=== PATIENT | male | born 1955 | race Caucasian/White ===

== ENCOUNTER 2017-12-21 15:20 | Emergency (ER) | payer MEDICARE ==
[~2017-12-21] VITALS: Ht 167.6 cm; Wt 102.1 kg
[~2017-12-21 15:20] MED LIST: ALBIPROI INH; ASPI325EC; ASPI81CH PO; ATOR40TA; ATOR40TA PO; Aspirin EC81 MG PO; Aspirin325 MG PO; CLOP75 PO; Lisinopril2.5 MG; Lopressor 25 mg25 MG PO; METO25 PO; NAPR550 PO; NICO21TP; Nitrostat0.4 MG SL; Norco 5-325 Ta1 EACH PO; TRAM50 PO; UNKNOWN BP MED; Zofran8 MG PO; [UNRECOGNIZED DRUG - REMARK]
[2017-12-21 16:18] LABS: BASOPHILS ABSOLUTE AUTO 0.07 K/mm3 (0.00-0.23); BASOPHILS PERCENT AUTO 1 % (0-2); EOSINOPHILS ABSOLUTE AUTO 0.09 K/mm3 (0.00-0.68); EOSINOPHILS PERCENT AUTO 1 % (0-6); Hematocrit 49.6 % (37.0-53.0); Hemoglobin 16.6 g/dL (13.5-17.5); IMMATURE GRAN ABSOLUTE AUTO 0.02 K/mm3 (0.00-0.10); IMMATURE GRAN PERCENT AUTO 0 % (0-1); LYMPHOCYTES ABSOLUTE AUTO 2.93 K/mm3 (0.84-5.20); LYMPHOCYTES PERCENT AUTO 37 % (21-46); MONOCYTES ABSOLUTE AUTO 0.63 K/mm3 (0.16-1.47); MONOCYTES PERCENT AUTO 8 % (4-13); Mean Corpuscular HGB Conc 33.5 g/dL (31.5-36.5); Mean Corpuscular Volume 87 fL (80-100); Mean Platelet Volume 11.5 fL (9.1-12.4); NEUTROPHILS ABSOLUTE AUTO 4.12 K/mm3 (1.96-9.15); NEUTROPHILS PERCENT AUTO 52 % (41-73); Platelet Count 181 K/mm3 (150-400); RDW Coefficient Variation 13.3 % (11.7-14.2); RDW Standard Deviation 42.3 fL (35.1-46.3); Red Blood Cell Count 5.72 M/mm3 (4.30-5.90); White Blood Cell Count 7.86 K/mm3 (4.00-11.30)
[2017-12-21 16:27] LABS: Alanine Aminotransfer (ALT/SGP 17 U/L (12-78); Albumin, Blood 3.5 g/dL (3.4-5.0); Albumin/Globulin Ratio 0.9 (0.8-1.8); Alk Phos 76 U/L (50-136); Anion Gap 8 mmol/L (6-16); Aspartate Aminotrans (AST/SGOT 14 U/L (12-37); Bilirubin, Total 0.4 mg/dL (0.1-1.0); Blood Urea Nitrogen 10 mg/dL (8-24); Bun/Creatinine Ratio 11.1 (12.0-20.0); CO2, Blood 24 mmol/L (21-32); Calcium, Blood 8.8 mg/dL (8.5-10.1); Chloride, Blood 105 mmol/L (98-108); Glomerular Filtration Rate >60 (60-); Glucose, Blood 97 mg/dL (70-99); Sodium, Blood 137 mmol/L (136-145); Total Protein, Blood 7.5 g/dL (6.4-8.2); Troponin I <0.015 ng/mL (0.000-0.040)
[2017-12-21] MEDS ORDERED: Nitrostat0.4 MG SL (18:48)
== END 2017-12-21 19:06 | disposition home or self-care (01) ==
LOC: ER 15:20
PROVIDERS: Physician Assistant
DX: R07.9 Chest pain, unspecified (principal); I25.2 Old myocardial infarction; F17.210 Nicotine dependence, cigarettes, uncomplicated; Z79.82 Long term (current) use of aspirin; Z79.899 Other long term (current) drug therapy; Z79.01 Long term (current) use of anticoagulants
CPT/HCPCS: 71046; 80053; 84484; 85025; 93005; 93010; 99284

== ENCOUNTER 2020-11-24 19:24 | Emergency (ER) | payer MEDICARE ==
[~2020-11-24] VITALS: Ht 167.6 cm; Wt 102.1 kg
[2020-11-24 19:39] LABS: BASOPHILS ABSOLUTE AUTO 0.07 K/mm3 (0.00-0.23); BASOPHILS PERCENT AUTO 1 % (0-2); EOSINOPHILS PERCENT AUTO 1 % (0-6); Hematocrit 49.6 % (37.0-53.0); Hemoglobin 16.3 g/dL (13.5-17.5); IMMATURE GRAN ABSOLUTE AUTO 0.02 K/mm3 (0.00-0.10); IMMATURE GRAN PERCENT AUTO 0 % (0-1); LYMPHOCYTES ABSOLUTE AUTO 3.16 K/mm3 (0.84-5.20); LYMPHOCYTES PERCENT AUTO 31 % (21-46); MONOCYTES ABSOLUTE AUTO 0.64 K/mm3 (0.16-1.47); MONOCYTES PERCENT AUTO 6 % (4-13); Mean Corpuscular HGB 29.1 pg (26.0-34.0); Mean Corpuscular HGB Conc 32.9 g/dL (31.5-36.5); Mean Corpuscular Volume 88 fL (80-100); Mean Platelet Volume 11.4 fL (9.1-12.4); NEUTROPHILS ABSOLUTE AUTO 6.27 K/mm3 (1.96-9.15); NEUTROPHILS PERCENT AUTO 61 % (41-73); Platelet Count 155 K/mm3 (150-400); RDW Coefficient Variation 13.8 % (11.7-14.2); RDW Standard Deviation 44.6 fL (35.1-46.3); Red Blood Cell Count 5.61 M/mm3 (4.30-5.90); White Blood Cell Count 10.26 K/mm3 (4.00-11.30)
[2020-11-24 20:02] LABS: Alanine Aminotransfer (ALT/SGP 27 U/L (12-78); Albumin, Blood 3.4 g/dL (3.4-5.0); Albumin/Globulin Ratio 0.9 (0.8-1.8); Alk Phos 91 U/L (50-136); Anion Gap 7 mmol/L (6-16); Aspartate Aminotrans (AST/SGOT 20 U/L (12-37); Bilirubin, Total 0.4 mg/dL (0.1-1.0); Blood Urea Nitrogen 10 mg/dL (8-24); Bun/Creatinine Ratio 11.1 (12.0-20.0); CO2, Blood 24 mmol/L (21-32); Calcium, Blood 8.6 mg/dL (8.5-10.1); Chloride, Blood 106 mmol/L (98-108); Globulin, Blood 3.6 g/dL (2.2-4.0); Glomerular Filtration Rate >60 (60-); Glucose, Blood 106 mg/dL (70-99); Potassium, Blood 3.9 mmol/L (3.5-5.5); Sodium, Blood 137 mmol/L (136-145); Troponin I <0.015 ng/mL (0.000-0.040)
== END 2020-11-24 22:45 | disposition home or self-care (01) ==
LOC: ER 19:24
PROVIDERS: Emergency Medicine
DX: R07.9 Chest pain, unspecified (principal); R42 Dizziness and giddiness; E78.5 Hyperlipidemia, unspecified; I10 Essential (primary) hypertension; F17.210 Nicotine dependence, cigarettes, uncomplicated; Z79.02 Long term (current) use of antithrombotics/antiplatelets; Z79.899 Other long term (current) drug therapy; Z79.82 Long term (current) use of aspirin; Z95.5 Presence of coronary angioplasty implant and graft
CPT/HCPCS: 80053; 83690; 84484; 85025; 93005; 93010; 99285-25

== ENCOUNTER 2023-06-04 11:16 | Inpatient (IN) | payer MEDICARE ==
[~2023-06-04] VITALS: Ht 167.6 cm; Wt 74.5 kg
[2023-06-04 13:35] LABS: BASOPHILS ABSOLUTE AUTO 0.07 K/mm3 (0.00-0.23); BASOPHILS PERCENT AUTO 1 % (0-2); EOSINOPHILS ABSOLUTE AUTO 0.11 K/mm3 (0.00-0.68); EOSINOPHILS PERCENT AUTO 1 % (0-6); Hematocrit 52.4 % (37.0-53.0); Hemoglobin 17.4 g/dL (13.5-17.5); IMMATURE GRAN ABSOLUTE AUTO 0.01 K/mm3 (0.00-0.10); IMMATURE GRAN PERCENT AUTO 0 % (0-1); LYMPHOCYTES ABSOLUTE AUTO 3.32 K/mm3 (0.84-5.20); LYMPHOCYTES PERCENT AUTO 38 % (21-46); MONOCYTES ABSOLUTE AUTO 0.61 K/mm3 (0.16-1.47); MONOCYTES PERCENT AUTO 7 % (4-13); Mean Corpuscular HGB 29.2 pg (26.0-34.0); Mean Corpuscular HGB Conc 33.2 g/dL (31.5-36.5); Mean Corpuscular Volume 88 fL (80-100); Mean Platelet Volume 11.6 fL (9.1-12.4); NEUTROPHILS PERCENT AUTO 53 % (41-73); Platelet Count 164 K/mm3 (150-400); RDW Coefficient Variation 13.9 % (11.7-14.2); RDW Standard Deviation 45.1 fL (35.1-46.3); Red Blood Cell Count 5.95 M/mm3 (4.30-5.90); White Blood Cell Count 8.72 K/mm3 (4.00-11.30)
[2023-06-04 14:24] LABS: Alanine Aminotransfer (ALT/SGP 26 U/L (12-78); Albumin, Blood 3.8 g/dL (3.4-5.0); Alk Phos 81 U/L (50-136); Anion Gap 0 mmol/L (6-16); Aspartate Aminotrans (AST/SGOT 19 U/L (12-37); Bilirubin, Total 0.4 mg/dL (0.1-1.0); Blood Urea Nitrogen 14 mg/dL (8-24); Bun/Creatinine Ratio 16.1 (12.0-20.0); C-REACTIVE PROTEIN, EXT RANGE < 2.900 mg/dL (0.000-0.300); CO2, Blood 28 mmol/L (21-32); Calcium, Blood 9.4 mg/dL (8.5-10.1); Chloride, Blood 110 mmol/L (98-108); Creatinine, Blood 0.87 mg/dL (0.60-1.20); Globulin, Blood 3.8 g/dL (2.2-4.0); Glomerular Filtration Rate 95 (60-); Glucose, Blood 93 mg/dL (70-99); Potassium, Blood 4.3 mmol/L (3.5-5.5); Sodium, Blood 138 mmol/L (136-145); Total Protein, Blood 7.6 g/dL (6.4-8.2)
[2023-06-04 14:31] LABS: Anti-Xa UFH, PHA Monitoring <0.10 IU/mL; International Normalized Ratio 1.02; Prothrombin Time Results 10.7 Sec (9.7-11.5)
[2023-06-04 18:42] VITALS: BP 126/68
--- NOTE | 2023-06-04 19:06 | NUR ---
ASSIGNED PATIENT TO ROOM 313 FROM ED AT 1733 ED RN REPORT FROM [facility] AT 1805, PATIENT ARRIVED ON FLOOR AT 1836 VIA BED, ABLE TO STAND/PIVOT TRANSFER TO ROOM BED. HEPARIN VERIFIED WITH ISHAN BRANTLEY FOR POWER STATION OPERATOR AT 1846.
[2023-06-04 19:51] VITALS: BP 106/69
--- NOTE | 2023-06-05 05:02 | NUR ---
EOS NOTE: RECEIVED PATIENT FROM RELOCATION COMMISSIONER AT 0015, BEDSIDE REPORT COMPLETED. ASSESSED LEFT GROIN SITE WITH RELOCATION COMMISSIONER RN. SITE IS C/D/I, COVERED WITH TRANSPARENT CHG DRESSING, SMALL AMOUNT OF SANGUINEOUS DRAINAGE TO SITE. ASSESSED SITE Q15 MINUTES FOR FIRST HOUR, Q30 FOR SECOND HOUR, Q1 FOLLOWING. SITE CONTINUED TO BE C/D/I. MEASUREMENTS TO BELOW KNEE, CALF, AND ANKLE WERE CONSISTENT EACH TIME. PATIENT IS ORIENTED AND PLEASANT TO WORK WITH. MAINTAINED FLAT TIME FOR FIRST 3 HOURS, ADVANCED 15 DEGREES EVERY SUBSEQUENT HOUR AFTER. MAINTAINED SB/NSR ON TELE. CONTINENT OF GI/, URINE OUTPUT APPROPRIATE FOR SHIFT. L IV HAS HEPARIN INFUSING. VSS. REVASC SITE STABLE. WILL CONTINUE TO MONITOR.
[2023-06-05 07:52] VITALS: BP 116/65
[2023-06-05 07:57] LABS: BASOPHILS ABSOLUTE AUTO 0.06 K/mm3 (0.00-0.23); BASOPHILS PERCENT AUTO 1 % (0-2); EOSINOPHILS ABSOLUTE AUTO 0.11 K/mm3 (0.00-0.68); EOSINOPHILS PERCENT AUTO 1 % (0-6); Hematocrit 46.2 % (37.0-53.0); Hemoglobin 15.3 g/dL (13.5-17.5); IMMATURE GRAN ABSOLUTE AUTO 0.03 K/mm3 (0.00-0.10); IMMATURE GRAN PERCENT AUTO 0 % (0-1); LYMPHOCYTES ABSOLUTE AUTO 3.34 K/mm3 (0.84-5.20); LYMPHOCYTES PERCENT AUTO 34 % (21-46); MONOCYTES ABSOLUTE AUTO 0.73 K/mm3 (0.16-1.47); MONOCYTES PERCENT AUTO 8 % (4-13); Mean Corpuscular HGB 29.5 pg (26.0-34.0); Mean Corpuscular HGB Conc 33.1 g/dL (31.5-36.5); Mean Corpuscular Volume 89 fL (80-100); Mean Platelet Volume 11.6 fL (9.1-12.4); NEUTROPHILS PERCENT AUTO 56 % (41-73); Platelet Count 129 K/mm3 (150-400); RDW Coefficient Variation 14.2 % (11.7-14.2); RDW Standard Deviation 46.2 fL (35.1-46.3); Red Blood Cell Count 5.19 M/mm3 (4.30-5.90); White Blood Cell Count 9.77 K/mm3 (4.00-11.30)
[2023-06-05 08:06] LABS: Bun/Creatinine Ratio 21.4 (12.0-20.0); Calcium, Blood 8.4 mg/dL (8.5-10.1); Creatinine, Blood 1.03 mg/dL (0.60-1.20); Potassium, Blood 4.6 mmol/L (3.5-5.5)
--- NOTE | 2023-06-05 10:36 | NUR ---
care assumption this rn assumed care at 0700. vital signs stable. tele sr. spo2 >95% on room air. patietn is alert and oriented x4. patient reports no pain, chest pain/pressure, or shortness of breath. pateint left access site from revasc has approx quarter size old blood on dressing. patient up to bathroom this am and morning care, no new oozing at site. patient has a small bruise forming at site, patient reports tenderness when palpating. see admit assessment for further detials. MD Garcia and team in to see patient this am and discussed plan of care. plan of care is up to date. admit assessment and history not completed. this rn completed admit assessment and history, see admit assessment for this management intern.
[2023-06-05 11:06] VITALS: BP 126/72
[2023-06-05] MEDS ORDERED: XARELTO20 MG PO (13:59)
--- NOTE | 2023-06-05 14:30 | NUR ---
DISCHARGE This rn went over discharge instructions. this rn went voer the importance fo follow up with primary care provider, patient verbalized understanding. this rn went over new medication and the rationale for taking it, patient verbalized understanding. this rn went over follow up appointment with md oliver and patient verbalized understanding. medications faxed to [facility]. patient belongings gathered. patient in no distress and no acute changes. awaiting for ride.
--- NOTE | 2023-06-05 15:39 | NUR ---
PATIENT LEFT PATIENT LEFT WITH ALL BELONGINGS AND IN NO DISTRESS.
[2023-06-06] MEDS ORDERED: ACET500 PO (00:15)
== END 2023-06-05 15:00 | disposition home or self-care (01) | DRG 272 ==
LOC: ER 11:16 → MEDS 11:17 → PCU 06-05 00:13
PROVIDERS: Student in an Organized Health Care Education/Training Program; ADMIT Hospitalist
PROC: 04CN3ZZ Extirpation of Matter from Left Popliteal Artery, Percutaneous Approach (ICD-10-PCS; principal; 2023-06-04)
PROC: 3E05317 Introduction of Other Thrombolytic into Peripheral Artery, Percutaneous Approach (ICD-10-PCS; 2023-06-04)
PROC: 04CN3ZZ Extirpation of Matter from Left Popliteal Artery, Percutaneous Approach (ICD-10-PCS; 2023-06-04)
PROC: 047N3ZZ Dilation of Left Popliteal Artery, Percutaneous Approach (ICD-10-PCS; 2023-06-04)
PROC: 047S3ZZ Dilation of Left Posterior Tibial Artery, Percutaneous Approach (ICD-10-PCS; 2023-06-04)
PROC: B41G1ZZ Fluoroscopy of Left Lower Extremity Arteries using Low Osmolar Contrast (ICD-10-PCS; 2023-06-04)
DX: I74.3 Embolism and thrombosis of arteries of the lower extremities (principal); I25.10 Atherosclerotic heart disease of native coronary artery without angina pectoris; I10 Essential (primary) hypertension; E78.5 Hyperlipidemia, unspecified; F12.90 Cannabis use, unspecified, uncomplicated; F17.210 Nicotine dependence, cigarettes, uncomplicated; I25.2 Old myocardial infarction; Z95.5 Presence of coronary angioplasty implant and graft; Z79.82 Long term (current) use of aspirin; Z79.01 Long term (current) use of anticoagulants; Z79.899 Other long term (current) drug therapy; Z79.811 Long term (current) use of aromatase inhibitors
CPT/HCPCS: 36415; 76937; 80048; 80053; 82550; 85025; 85520; 85610; 85651; 85730; 86140; 93926; 93971; 96365; 96366; 96375; 99152; 99153; 99285-25; A9270; C1725; C1757; C1760; C1769; C1887; C1894; C8929; J1644; J1885; J2250; J2270; J2997; J3010; J7030; J7040; J7050; Q9957; Q9967

== ENCOUNTER 2023-06-05 20:57 | Emergency (ER) | payer MEDICARE ==
[~2023-06-05] VITALS: Ht 167.6 cm; Wt 70.0 kg
[~2023-06-05 20:57] MED LIST changes: +XARELTO20 MG PO
[2023-06-06] MEDS ORDERED: ACET500 PO (00:15)
[2023-06-06 00:35] VITALS: BP 123/87
== END 2023-06-06 00:35 | disposition home or self-care (01) ==
LOC: ER 20:57
DX: M79.662 Pain in left lower leg (principal); M79.605 Pain in left leg; Z79.899 Other long term (current) drug therapy; G40.909 Epilepsy, unspecified, not intractable, without status epilepticus; I25.2 Old myocardial infarction; F17.210 Nicotine dependence, cigarettes, uncomplicated
CPT/HCPCS: 93971; 99283-25; A9270

== ENCOUNTER 2023-06-10 23:23 | Emergency (ER) | payer MEDICARE ==
[~2023-06-10] VITALS: Ht 167.6 cm; Wt 75.3 kg
[~2023-06-10 23:23] MED LIST changes: +ACET500 PO
[2023-06-11] MEDS ORDERED: HYDACE10B PO (01:29)
[2023-06-11 01:33] VITALS: BP 108/79
== END 2023-06-11 01:35 | disposition home or self-care (01) ==
LOC: ER 23:23
DX: I70.202 Unspecified atherosclerosis of native arteries of extremities, left leg (principal); I25.2 Old myocardial infarction; I25.10 Atherosclerotic heart disease of native coronary artery without angina pectoris; G40.909 Epilepsy, unspecified, not intractable, without status epilepticus; I11.0 Hypertensive heart disease with heart failure; I50.9 Heart failure, unspecified; E78.5 Hyperlipidemia, unspecified; F17.210 Nicotine dependence, cigarettes, uncomplicated; Z79.01 Long term (current) use of anticoagulants; Z79.02 Long term (current) use of antithrombotics/antiplatelets; Z79.899 Other long term (current) drug therapy
CPT/HCPCS: 93926; 99283-25

== ENCOUNTER 2023-06-12 12:45 | Inpatient (IN) | payer MEDICARE, MEDICAID ==
[~2023-06-12] VITALS: Ht 167.6 cm; Wt 73.2 kg
[~2023-06-12 12:45] MED LIST changes: +HYDACE10B PO
[2023-06-12 14:15] LABS: BASOPHILS ABSOLUTE AUTO 0.05 K/mm3 (0.00-0.23); BASOPHILS PERCENT AUTO 1 % (0-2); EOSINOPHILS ABSOLUTE AUTO 0.11 K/mm3 (0.00-0.68); EOSINOPHILS PERCENT AUTO 1 % (0-6); Hematocrit 48.9 % (37.0-53.0); Hemoglobin 16.3 g/dL (13.5-17.5); IMMATURE GRAN ABSOLUTE AUTO 0.02 K/mm3 (0.00-0.10); IMMATURE GRAN PERCENT AUTO 0 % (0-1); LYMPHOCYTES ABSOLUTE AUTO 2.68 K/mm3 (0.84-5.20); LYMPHOCYTES PERCENT AUTO 32 % (21-46); MONOCYTES ABSOLUTE AUTO 0.62 K/mm3 (0.16-1.47); MONOCYTES PERCENT AUTO 7 % (4-13); Mean Corpuscular HGB 29.4 pg (26.0-34.0); Mean Corpuscular HGB Conc 33.3 g/dL (31.5-36.5); Mean Corpuscular Volume 88 fL (80-100); Mean Platelet Volume 11.7 fL (9.1-12.4); NEUTROPHILS ABSOLUTE AUTO 4.99 K/mm3 (1.96-9.15); NEUTROPHILS PERCENT AUTO 59 % (41-73); Platelet Count 142 K/mm3 (150-400); RDW Coefficient Variation 14.2 % (11.7-14.2); RDW Standard Deviation 46.3 fL (35.1-46.3); Red Blood Cell Count 5.54 M/mm3 (4.30-5.90); White Blood Cell Count 8.47 K/mm3 (4.00-11.30)
[2023-06-12 14:42] LABS: International Normalized Ratio 1.13; Prothrombin Time Results 11.8 Sec (9.7-11.5)
[2023-06-12 14:46] LABS: Albumin, Blood 3.6 g/dL (3.4-5.0); Bilirubin, Total 0.5 mg/dL (0.1-1.0); Bun/Creatinine Ratio 22.8 (12.0-20.0); Calcium, Blood 8.6 mg/dL (8.5-10.1); Creatinine, Blood 0.88 mg/dL (0.60-1.20); Globulin, Blood 3.7 g/dL (2.2-4.0); Potassium, Blood 4.5 mmol/L (3.5-5.5); Total Protein, Blood 7.3 g/dL (6.4-8.2)
[2023-06-12 17:47] VITALS: BP 142/69
--- NOTE | 2023-06-12 19:11 | NUR ---
ADMISSION NOTES: RECEIVED REPORT FROM GASTON VAZQUEZ, RN AT AROUND 1740. PER [facility] ALREADY SPOKE TO DR. LONG REGARDING PATIENT CONDITION, PLAN TO HAVE PATIENT PROCEDURE DONE ON WEDNESDAY. PATIENT ARRIVES TO ROOM AT AROUND 1750 FROM ER FOR DX OF PERIPHERAL ARTERIAL DISEASE. PATIENT TRANSFERRED FROM [facility] TO BED USING SLIDER SHEET. PATIENT A&OX4. ORIENTED TO ROOM AND CALL SYSTEM. NOTED BRUISNG SCATTERED T/O, PLUS 1 EDEMA TO BLE'S. PATIENT REPORTS PAIN 8/10 TO L LOWER LEG BELOW BEHIND HIS KNEE, MEDICATED X1 c PO NORCO. PATIENT ON BEDREST c BRP. ADMISSION, MEDRIC, AND SKIN ASSESSMENT c 2 RN VERIFIERS COMPLETED. VITAL SIGNS REVIEWED. DENIES CP/PRESSURE AND SOB. IV TO LAC INFUSING HEPARIN. CALL LIGHT IN REACH. PATIENT EDUCATED ON NON SMOKING POLICY, RISK OF INJURY AND IGNITION SOURCES WHEN O2 IN USE. PATIENT DENIES SMOKING AND VERBALIZED UNDERSTANDING.
--- NOTE | 2023-06-13 01:30 | NUR ---
REPORT RECEIVED VSS, PAIN TO LEFT CALF DVT. HEPARIN INFUSING. 1105 HEPARIN STOPPED FOR ELEVATED APTT FOR ONE HOUR. 1205 HEPARIN DOSE CHANGED TO 15UNITS, AND RESTARTED 1245 INCREASED PAIN TO LEFT LEG, HEAT PAD APPLIED, NEW IV STARTED AND MEDICATION GIVEN.
[2023-06-13 03:53] VITALS: BP 135/78
--- NOTE | 2023-06-13 05:33 | NUR ---
PT HAVING PAIN AND IS COVERED WITH PAIN MEDS. HAS BEEN CALLING APPROPRIATLY, PT ALSO TRANSFERS WELL WITH FWW AND TRANSFERS TO BATHROOM. NO CHANGE IN CONDITION
[2023-06-13 07:22] LABS: BASOPHILS ABSOLUTE AUTO 0.06 K/mm3 (0.00-0.23); BASOPHILS PERCENT AUTO 1 % (0-2); EOSINOPHILS PERCENT AUTO 1 % (0-6); Hematocrit 44.9 % (37.0-53.0); Hemoglobin 15.1 g/dL (13.5-17.5); IMMATURE GRAN ABSOLUTE AUTO 0.02 K/mm3 (0.00-0.10); IMMATURE GRAN PERCENT AUTO 0 % (0-1); LYMPHOCYTES ABSOLUTE AUTO 2.76 K/mm3 (0.84-5.20); LYMPHOCYTES PERCENT AUTO 32 % (21-46); MONOCYTES ABSOLUTE AUTO 0.72 K/mm3 (0.16-1.47); MONOCYTES PERCENT AUTO 8 % (4-13); Mean Corpuscular HGB 29.7 pg (26.0-34.0); Mean Corpuscular HGB Conc 33.6 g/dL (31.5-36.5); Mean Corpuscular Volume 88 fL (80-100); NEUTROPHILS ABSOLUTE AUTO 5.09 K/mm3 (1.96-9.15); NEUTROPHILS PERCENT AUTO 58 % (41-73); Platelet Count 131 K/mm3 (150-400); RDW Coefficient Variation 14.2 % (11.7-14.2); RDW Standard Deviation 45.7 fL (35.1-46.3); Red Blood Cell Count 5.09 M/mm3 (4.30-5.90); White Blood Cell Count 8.75 K/mm3 (4.00-11.30)
[2023-06-13 07:28] VITALS: BP 112/74
[2023-06-13 07:55] LABS: Bun/Creatinine Ratio 23.3 (12.0-20.0); Calcium, Blood 8.5 mg/dL (8.5-10.1); Creatinine, Blood 0.9 mg/dL (0.60-1.20); Potassium, Blood 4.4 mmol/L (3.5-5.5)
[2023-06-13 15:13] VITALS: BP 134/71
--- NOTE | 2023-06-13 17:47 | NUR ---
SHIFT SUMMARY: PATIENT A&OX4. CALM, PLEASANT AND COOPERATIVE c CARE. USES CALL LIGHT APPROPRIATELY AND ABLE TO MAKE NEEDS KNOWN. PATIENT DENIES CP/PRESSURE, SOB, N/V. PATIENT CONTINUES TO REPORT PAIN 5-9/10 TO L LEG/CALF THIS SHIFT, MEDICATED c PRN PAIN MEDS PER EMAR, HEATING PAD AND REPOSITIONING T/O SHIFT c GOOD EFFECT. PIV TO LAC SALINE LOCKED. PIV TO R FOREARM INFUSING HEPARIN AT 14 U/KG/HR, RATE CONTROLLED BY PHARMACY. CONTINENCE OF BLADDER AND USES URINAL/BATHROOM T/O SHIFT c 1 ASSIST, FWW AND GAITBELT. PATIENT IS EATING AND DRINKING WELL. RECEIVED SCHEDULED MEDS PER EMAR. VITAL SIGNS REVIEWED. CALL LIGHT IN REACH. PATIENT EDUCATED ON NON SMOKING POLICY, RISK OF INJURY AND IGNITION SOURCES WHEN O2 IN USE. PATIENT DENIES SMOKING AND VERBALIZED UNDERSTANDING.
[2023-06-13 19:01] VITALS: BP 118/87
--- NOTE | 2023-06-14 04:10 | NUR ---
SHIFT SUMMARY PT A&OX4, AND COOPERATIVE WITH CARE. NO ACUTE CHANGES. RESTED MAJORITY OF SHIFT. ALTERNATING NORCO AND FENTANYL FOR PAIN. 1-ASSIST WITH GB/FWW TO BATHROOM. NPO SINCE MIDNIGHT. HEPARIN INFUSING @ 14 UNITS/KG/HR. CALLS APPROPRIATELY, CALL LIGHT WITHIN REACH.
[2023-06-14 04:57] LABS: BASOPHILS ABSOLUTE AUTO 0.04 K/mm3 (0.00-0.23); BASOPHILS PERCENT AUTO 1 % (0-2); EOSINOPHILS ABSOLUTE AUTO 0.11 K/mm3 (0.00-0.68); EOSINOPHILS PERCENT AUTO 1 % (0-6); Hematocrit 43.1 % (37.0-53.0); Hemoglobin 14.5 g/dL (13.5-17.5); IMMATURE GRAN ABSOLUTE AUTO 0.02 K/mm3 (0.00-0.10); IMMATURE GRAN PERCENT AUTO 0 % (0-1); LYMPHOCYTES ABSOLUTE AUTO 2.25 K/mm3 (0.84-5.20); LYMPHOCYTES PERCENT AUTO 28 % (21-46); MONOCYTES ABSOLUTE AUTO 0.69 K/mm3 (0.16-1.47); MONOCYTES PERCENT AUTO 9 % (4-13); Mean Corpuscular HGB 29.5 pg (26.0-34.0); Mean Corpuscular HGB Conc 33.6 g/dL (31.5-36.5); Mean Corpuscular Volume 88 fL (80-100); Mean Platelet Volume 12.3 fL (9.1-12.4); NEUTROPHILS ABSOLUTE AUTO 4.97 K/mm3 (1.96-9.15); NEUTROPHILS PERCENT AUTO 62 % (41-73); Platelet Count 130 K/mm3 (150-400); RDW Coefficient Variation 14.1 % (11.7-14.2); Red Blood Cell Count 4.92 M/mm3 (4.30-5.90); White Blood Cell Count 8.08 K/mm3 (4.00-11.30)
[2023-06-14 05:18] LABS: Albumin, Blood 3.1 g/dL (3.4-5.0); Bilirubin, Total 0.5 mg/dL (0.1-1.0); Calcium, Blood 8.7 mg/dL (8.5-10.1); Creatinine, Blood 0.95 mg/dL (0.60-1.20); Globulin, Blood 3.2 g/dL (2.2-4.0); Potassium, Blood 4.3 mmol/L (3.5-5.5); Total Protein, Blood 6.3 g/dL (6.4-8.2)
[2023-06-14 07:39] VITALS: BP 115/58
[2023-06-14 14:31] VITALS: BP 147/88
--- NOTE | 2023-06-14 15:50 | NUR ---
SHIFT SUMMARY PT REMAINS PAINFUL T/O SHIFT TO LLE. HE CONTINUES TO ENDORSE TO NUMBNESS TO FOOT ON THAT SIDE. [id number], CALLS APPROPRIATLY. TOLERATING DIET WELL. VOIDING IN URINAL. HEPARIN INFUSING PER EMAR. PLAN FOR POSSIBLE PROCEDURE TOMORROW WITH IR. NPO AT MIDNIGHT.
--- NOTE | 2023-06-14 16:40 | NUR ---
SPOKE WITH DR. LONG, PLAN IS FOR PROCEDURE EARLY TOMORROW MORNING. PT TO BE NPO AT MIDNIGHT.
[2023-06-14 19:46] VITALS: BP 133/77
[2023-06-15] VITALS (14 sets, daily range): BP systolic 105–162; BP diastolic 53–122
[2023-06-15 01:23] LABS: BASOPHILS ABSOLUTE AUTO 0.04 K/mm3 (0.00-0.23); BASOPHILS PERCENT AUTO 1 % (0-2); EOSINOPHILS ABSOLUTE AUTO 0.11 K/mm3 (0.00-0.68); EOSINOPHILS PERCENT AUTO 2 % (0-6); Hematocrit 44.6 % (37.0-53.0); Hemoglobin 14.8 g/dL (13.5-17.5); IMMATURE GRAN ABSOLUTE AUTO 0.02 K/mm3 (0.00-0.10); IMMATURE GRAN PERCENT AUTO 0 % (0-1); LYMPHOCYTES ABSOLUTE AUTO 2.92 K/mm3 (0.84-5.20); LYMPHOCYTES PERCENT AUTO 40 % (21-46); MONOCYTES ABSOLUTE AUTO 0.78 K/mm3 (0.16-1.47); MONOCYTES PERCENT AUTO 11 % (4-13); Mean Corpuscular HGB 29.4 pg (26.0-34.0); Mean Corpuscular HGB Conc 33.2 g/dL (31.5-36.5); Mean Corpuscular Volume 89 fL (80-100); Mean Platelet Volume 11.7 fL (9.1-12.4); NEUTROPHILS ABSOLUTE AUTO 3.48 K/mm3 (1.96-9.15); NEUTROPHILS PERCENT AUTO 47 % (41-73); Platelet Count 117 K/mm3 (150-400); RDW Coefficient Variation 14.1 % (11.7-14.2); RDW Standard Deviation 45.5 fL (35.1-46.3); Red Blood Cell Count 5.03 M/mm3 (4.30-5.90); White Blood Cell Count 7.35 K/mm3 (4.00-11.30)
[2023-06-15 01:42] LABS: Albumin/Globulin Ratio 0.9 (0.8-1.8); Bilirubin, Total 0.4 mg/dL (0.1-1.0); Calcium, Blood 8.6 mg/dL (8.5-10.1); Creatinine, Blood 0.96 mg/dL (0.60-1.20); Globulin, Blood 3.3 g/dL (2.2-4.0); Potassium, Blood 4.3 mmol/L (3.5-5.5); Total Protein, Blood 6.3 g/dL (6.4-8.2)
--- NOTE | 2023-06-15 05:25 | NUR ---
Shift Summary Pt has been NPO since 0000 in anticipation for vascular surgery on LLE. Pt c/o intractible 08/03 abd pain for days. I called the hospitalist who ordered PRN dilauded. I gave one dose and brought in pillows to elevate his LLE. Pt states this brought feeling back to his foot and, combined with the medicine, greatly reduced his pain. Pt slept through some of the night but was mostly awake. AOx4, currently on bedrest, cooperative with care.
--- NOTE | 2023-06-15 12:52 | NUR ---
[facility]. PT WAS ALOX4, REPORT GIVEN TO OMAR IN PCU. PT TO BE TRANSFERED TO PCU 3 AFTER
--- NOTE | 2023-06-15 14:43 | NUR ---
CARE ASSUMPTION PT TO PCU 6 FROM PRODUCT STRATEGY DIRECTOR AT APPROX 1400. PT A&OX4, THOUGH DROWSY. SP02>90% ON RA. TELEMETRY SHOWS SINUS PUSHPA, HR 40'S-50'S, BP SOFT, SEE VITALS. PT LAYING FLAT, R GROIN SITE W/ ANGIO SEAL. SITE SOFT, NO SIGNS OF BLEEDING, BRUISING OR HEMATOMA. PER REPORT, MD LONG W/ ORDERS TO RESTART HEPARIN. PHARMACY CALLED, HEPARIN VERIFIED W/ 2ND RN AND RESTARTED PER EMAR. PT RESTING IN BED, FLAT. RECOVERY VITALS BEING SEQUENCED. CALL LIGHT IN REACH.
[2023-06-16] VITALS (8 sets, daily range): BP systolic 87–122; BP diastolic 63–93
[2023-06-16 03:36] LABS: BASOPHILS ABSOLUTE AUTO 0.04 K/mm3 (0.00-0.23); BASOPHILS PERCENT AUTO 1 % (0-2); EOSINOPHILS ABSOLUTE AUTO 0.11 K/mm3 (0.00-0.68); EOSINOPHILS PERCENT AUTO 2 % (0-6); Hematocrit 44.2 % (37.0-53.0); Hemoglobin 14.9 g/dL (13.5-17.5); IMMATURE GRAN ABSOLUTE AUTO 0.02 K/mm3 (0.00-0.10); IMMATURE GRAN PERCENT AUTO 0 % (0-1); LYMPHOCYTES ABSOLUTE AUTO 2.24 K/mm3 (0.84-5.20); LYMPHOCYTES PERCENT AUTO 30 % (21-46); MONOCYTES ABSOLUTE AUTO 0.78 K/mm3 (0.16-1.47); MONOCYTES PERCENT AUTO 10 % (4-13); Mean Corpuscular HGB 29.4 pg (26.0-34.0); Mean Corpuscular HGB Conc 33.7 g/dL (31.5-36.5); Mean Corpuscular Volume 87 fL (80-100); Mean Platelet Volume 11.9 fL (9.1-12.4); NEUTROPHILS ABSOLUTE AUTO 4.36 K/mm3 (1.96-9.15); NEUTROPHILS PERCENT AUTO 58 % (41-73); Platelet Count 125 K/mm3 (150-400); RDW Standard Deviation 44.9 fL (35.1-46.3); Red Blood Cell Count 5.07 M/mm3 (4.30-5.90); White Blood Cell Count 7.55 K/mm3 (4.00-11.30)
[2023-06-16 03:58] LABS: Albumin, Blood 3.1 g/dL (3.4-5.0); Albumin/Globulin Ratio 0.9 (0.8-1.8); Bilirubin, Total 0.6 mg/dL (0.1-1.0); Bun/Creatinine Ratio 23.1 (12.0-20.0); Calcium, Blood 8.9 mg/dL (8.5-10.1); Creatinine, Blood 0.95 mg/dL (0.60-1.20); Globulin, Blood 3.6 g/dL (2.2-4.0); Potassium, Blood 4.4 mmol/L (3.5-5.5); Total Protein, Blood 6.7 g/dL (6.4-8.2)
--- NOTE | 2023-06-16 06:32 | NUR ---
NOC SHIFT SUMMARY PT ORIENTED X4, ANXIOUS BUT COOPERATIVE. R GROIN SITE WNL, SOFT, NO HEMATOMA. CHECKED Q1X2 AND THEN Q4 OVERNIGHT WITH NO CHANGES. N/T TO LLE, PULSES FAINT BUT PALPABLE. PT VOIDING DARK URINE, ENCOURAGING PO INTAKE. VSS PER PT TREND. PRNS GIVEN W/RELIEF. WILL PASS ON TO DAY RN
--- NOTE | 2023-06-16 18:33 | NUR ---
END OF SHIFT NOTE PT A&OX4 THIS SHIFT, COOPERATIVE WITH CARE. HR MOSTLY 50-60'S, PT DENIES CP/PRESSURE. SBP MOSTLY 110'S-120'S. SPO2 >95% ON RA, DENIES SOB. R GROIN SITE INTACT, SOFT, NO HEMATOMA. COVERED WITH CHG TEGADERM. LLE PAIN/TINGLING, MEDICATED PER EMAR THROUGHOUT SHIFT. PULSES FAINT BUT PALPABLE. PT ABLE TO VOID IN URINAL, DARK TEA-COLORED URINE. PO FLUIDS ENCOURAGED THIS SHIFT. HEPARIN GTT CURRENTLY INFUSING PER EMAR. CALL LIGHT WITHIN REACH, NO FURTHER NEEDS AT THIS TIME. BED IN LOWEST POSITION. WILL REPORT TO ONCOMING RN.
[2023-06-17] VITALS (13 sets, daily range): BP systolic 118–207; BP diastolic 64–175
--- NOTE | 2023-06-17 05:32 | NUR ---
SHIFT SUMMARY THIS RN ASSUMED CARE OF PATIENT AT 1900. PT A&O X4, ABLE TO MAKE NEEDS KNOWN. CONTINUES TO HAVE PAIN IN LLE; MEDICATING PER EMAR. SB WITH HR 40-50'S AT REST. BP STABLE. AFEBRILE. ON RA WITH SPO2 >92%. HEP GTT INFUSING PER EMAR. RT GROIN SITE SOFT AND NONTENDER; FULLY RECOVERED, DRESSING C/D/I. PT USING URINAL INDEPENDENTLY; CONTINUES TO BE DARK/BROWN COLORED. BED IN LOWEST POSITION AND CALL LIGHT WITHIN REACH. THIS RN WILL REPORT TO ONCOMING RN.
--- NOTE | 2023-06-17 11:19 | NUR ---
PT UPDATE SPOKE WITH PHYSICIAN REGARDING D/C ORDERS PT RECEIVED AUTHORIZATION TO TRANSFER TO [facility]. UPDATED PHYSICIAN ON BOWEL PREP IMPLEMENTED, MD ADVISED TO NOTIFY AT 1300 IF NO BM AT THAT TIME.
[2023-06-17 12:16] LABS: SARS-Cov-2 (COVID-19) PCR, MMC NEGATIVE (NEGATIVE)
--- NOTE | 2023-06-17 12:23 | NUR ---
PT UPDATE: THIS RN CALLED TO PT BEDSIDE FOR LLE PAIN. PT REPORTS 10/10 PAIN IN THE UPPER LEFT THIGH THAT IS A "DEEP CONSTANT PAIN" AND FEELS "UNMANAGEABLE." FENTALYL ADMINISTERED PER EMAR, PT ALSO REPOSITIONED IN CHAIR. VSS. FAN AND WASHCLOTH APPLIED TO FOREHEAD PT IS DIAPHORETIC. PT REPORTS THAT THE PAIN INTENSIFIED, DILAUDID ADMINISTERED PER EMAR. PT EDUCATED ON DEEP BREATHING TECHNIQUES. WILL CONTINUE TO REASSESS PT'S PAIN.
--- NOTE | 2023-06-17 13:21 | NUR ---
PT UPDATE CALL PLACED TO MD LONG REGARDING PAIN. MD LONG WITH ORDERS FOR MANUAL PRESSURE ON LEFT GROIN SITE. ON ASSESSMENT PT HAS NEW-ONSET ABDOMINAL MOTTELING AND NEW PALPABLE FIRM MASS IN LEFT GROIN SITE. MD LLANES NOTIFIED. MD LLANES WITH ORDERS FOR STAT ABD CT WITH CONTRAST AND STAT H&H. THIS RN AT BEDSIDE TO CONTINUE MONITORING PT.
[2023-06-17 13:40] LABS: Hematocrit 40.8 % (37.0-53.0)
--- NOTE | 2023-06-17 15:03 | NUR ---
1400 UPDATE: APPROX 1400 THIS RN TO BEDSIDE FOR SPO2 70'S ON RA. PT LETHARGIC AND LYING IN BED. 2L O2 APPLIED VIA NC, SPO2 INCREASED TO >95%. WILL CONTINUE TO MONITOR, CALL LIGHT WITHIN REACH.
[2023-06-17 16:13] LABS: Hematocrit 42.3 % (37.0-53.0); Hemoglobin 14.6 g/dL (13.5-17.5)
--- NOTE | 2023-06-17 18:06 | NUR ---
END OF SHIFT NOTE PT A&OX4, ABLE TO CALL APPROPRIATELY AND MAKE NEEDS KNOWN TO STAFF. PT REPORTED 10/10 PAIN APPROX 1200 THAT CONTINUED INCREASING. PT MEDICATED PER EMAR WITHOUT IMPROVEMENT. SEE PREVIOUS NOTE REGARDING ASSESSMENT CHANGES. PT TO CT, MEDICATED PER EMAR ON RETURN. PT POSITIONED WITH LEGS ELEVATED AND REPORTED SIGNIFICANT PAIN RELIEF WITH POSITIONING. SPO2 DECREASED FOLLOWING PAIN RELIEF TO 70'S, 2L O2 APPLIED. SPO2 INCREASED TO >92%. BP'S MOSTLY 170'S FOLLOWING PAIN RELIEF, HR 60'S-70'S. PT ABLE TO STAND AT BEDSIDE AND VOID IN URINAL. URINE DARK RED. NO BM THIS SHIFT. BOWEL PROTOCOL IMPLEMENTED. ABLE TO SIT UP AND EAT DINNER INDEPENDENTLY. REPORTS CURRENT PAIN LEVEL 3/10. BED IN LOWEST POSITION, CALL LIGHT WITHIN REACH. NO FURTHER NEEDS AT THIS TIME. THIS RN WILL CONTINUE TO MONITOR AND REPORT TO ONCOMING NOC RN.
--- NOTE | 2023-06-17 21:17 | NUR ---
ASSUMPTION OF CARE THIS RN ASSUMED CARE OF PATIENT AT 1900. PT A&O X4. VITALS STABLE. STATING THAT PAIN IS 3/10 IN LLE AND LEFT GROIN AREA. THIS RN PALPATED HARD MASS IN LEFT LOWER QUADRANT, PT DENIED PAIN WITH PALPATION. LEFT KNEE AND LEFT FOOT/TOES NOTED TO HAVE REDNESS AND WARMTH. PPP. PT REPORTS THAT HE CONTINUES TO HAVE NUMBNESS IN LEFT THIGH, WHICH HE REPORTS HAS BEEN ONGOING SINCE THE PREVIOUS NIGHT. PT STATING THAT WHEN KNEES ARE ELEVATED IN THE BED THE PAIN SUBSIDES. PT CONTINUES TO HAVE BROWN COLORED URINE. TRENDING H/H PER ORDERS. MEDICATING PER EMAR FOR PAIN. BED IN LOWEST POSITION AND CALL LIGHT WITHIN REACH.
[2023-06-17 22:20] LABS: Hematocrit 39.3 % (37.0-53.0); Hemoglobin 13.6 g/dL (13.5-17.5)
[2023-06-18 00:15] VITALS: BP 126/70
[2023-06-18 04:05] VITALS: BP 114/65
[2023-06-18 04:09] LABS: BASOPHILS ABSOLUTE AUTO 0.04 K/mm3 (0.00-0.23); BASOPHILS PERCENT AUTO 0 % (0-2); EOSINOPHILS ABSOLUTE AUTO 0.13 K/mm3 (0.00-0.68); EOSINOPHILS PERCENT AUTO 1 % (0-6); Hematocrit 40.3 % (37.0-53.0); Hemoglobin 13.7 g/dL (13.5-17.5); IMMATURE GRAN ABSOLUTE AUTO 0.04 K/mm3 (0.00-0.10); IMMATURE GRAN PERCENT AUTO 0 % (0-1); LYMPHOCYTES ABSOLUTE AUTO 3.02 K/mm3 (0.84-5.20); LYMPHOCYTES PERCENT AUTO 28 % (21-46); MONOCYTES PERCENT AUTO 10 % (4-13); Mean Corpuscular HGB 29.5 pg (26.0-34.0); Mean Corpuscular Volume 87 fL (80-100); Mean Platelet Volume 12.1 fL (9.1-12.4); NEUTROPHILS ABSOLUTE AUTO 6.42 K/mm3 (1.96-9.15); NEUTROPHILS PERCENT AUTO 60 % (41-73); Platelet Count 127 K/mm3 (150-400); RDW Standard Deviation 44.5 fL (35.1-46.3); Red Blood Cell Count 4.64 M/mm3 (4.30-5.90); White Blood Cell Count 10.75 K/mm3 (4.00-11.30)
[2023-06-18 04:36] LABS: Albumin, Blood 3.1 g/dL (3.4-5.0); Albumin/Globulin Ratio 0.9 (0.8-1.8); Bilirubin, Total 0.5 mg/dL (0.1-1.0); Bun/Creatinine Ratio 20.6 (12.0-20.0); Calcium, Blood 9.2 mg/dL (8.5-10.1); Creatinine, Blood 0.83 mg/dL (0.60-1.20); Globulin, Blood 3.6 g/dL (2.2-4.0); Total Protein, Blood 6.7 g/dL (6.4-8.2)
--- NOTE | 2023-06-18 05:12 | NUR ---
SHIFT SUMMARY NO ACUTE CHANGES DURING THIS SHIFT. SEE PREVIOUS NOTE REGARDING PAIN/ASSESSMENT. PT REPORTS GOOD PAIN CONTROL OVERNIGHT WITH PO PAIN MEDS AND REPOSITIONING. LLE COLOR AND SENSATION REMAIN UNCHANGED FROM PREVIOUS NOTE/ASSESSMENT. VITALS REMAIN STABLE. BED IN LOWEST POSITION AND CALL LIGHT WITHIN REACH. THIS RN WILL REPORT TO ONCOMING RN.
[2023-06-18 07:31] VITALS: BP 89/71
[2023-06-18 07:32] VITALS: BP 106/65
[2023-06-18 10:11] LABS: Hematocrit 40.8 % (37.0-53.0); Hemoglobin 13.9 g/dL (13.5-17.5)
--- NOTE | 2023-06-18 10:49 | NUR ---
PT UPDATE ENEMA ADMINISTERED PER EMAR. PT ABLE TO HOLD FLUID IN FOR APPROX 2-3MINS. UP TO BSC WITH SBA. PT WITH EXTRA LARGE, UNFORMED, BROWN BM. PT TOLERATED WELL W/O COMPLAINTS. CALL LIGHT WITHIN REACH.
[2023-06-18 11:46] VITALS: BP 98/60
[2023-06-18 14:27] LABS: Hematocrit 40.6 % (37.0-53.0); Hemoglobin 13.9 g/dL (13.5-17.5)
[2023-06-18] MEDS ORDERED: METO25 PO (14:51)
[2023-06-18] MEDS ORDERED: NICO21TP TOP (14:51)
[2023-06-18] MEDS ORDERED: XARELTO20 MG PO (14:52)
[2023-06-18] MEDS ORDERED: SENN187 PO (14:52)
[2023-06-18] MEDS ORDERED: TAMS.4ER PO (14:52)
--- NOTE | 2023-06-18 16:14 | NUR ---
DISCHARGE NOTE REPORT CALLED TO [facility] APPROX 2287. DISCHARGE INSTRUCTIONS AND EDUCATION REVIEWED WITH PT BY THIS RN. IV REMOVED, PT CHANGED INTO CLEAN CLOTHES WITH STAFF ASSIST. PT REPORTS PAIN MANAGEABLE AT 3-02/01. ALL BELONGINGS GATHERED FROM ROOM. PT'S FRIEND, MARISELA, TO BEDSIDE TO TRANSPORT PT IN PRIVATE VEHICLE TO FACILITY. PT TAKEN TO VEHICLE BY STAFF IN WHEELCHAIR.
== END 2023-06-18 16:29 | disposition home or self-care (01) | DRG 253 ==
LOC: ER 12:45 → PCU 16:55 → SURS 16:55 → MEDS 17:40 → PCU 06-15 14:19
PROVIDERS: Family Medicine; Physician Assistant; ADMIT Internal Medicine
PROC: 047L3ZZ Dilation of Left Femoral Artery, Percutaneous Approach (ICD-10-PCS; principal; 2023-06-15)
PROC: 04FL3ZZ Fragmentation of Left Femoral Artery, Percutaneous Approach (ICD-10-PCS; 2023-06-15)
PROC: 04FN3ZZ Fragmentation of Left Popliteal Artery, Percutaneous Approach (ICD-10-PCS; 2023-06-15)
PROC: B41G1ZZ Fluoroscopy of Left Lower Extremity Arteries using Low Osmolar Contrast (ICD-10-PCS; 2023-06-15)
DX: I73.9 Peripheral vascular disease, unspecified (principal); I50.32 Chronic diastolic (congestive) heart failure; I25.10 Atherosclerotic heart disease of native coronary artery without angina pectoris; F17.210 Nicotine dependence, cigarettes, uncomplicated; I11.0 Hypertensive heart disease with heart failure; E78.5 Hyperlipidemia, unspecified; G40.909 Epilepsy, unspecified, not intractable, without status epilepticus; F12.90 Cannabis use, unspecified, uncomplicated; Z20.822 Contact with and (suspected) exposure to COVID-19; K59.00 Constipation, unspecified; R20.2 Paresthesia of skin; I25.2 Old myocardial infarction; Z95.5 Presence of coronary angioplasty implant and graft; Z79.02 Long term (current) use of antithrombotics/antiplatelets; Z79.891 Long term (current) use of opiate analgesic; Z79.811 Long term (current) use of aromatase inhibitors
CPT/HCPCS: 36415; 74177; 75625; 75716; 75774; 76937; 80048; 80053; 84484; 85014; 85018; 85025; 85347; 85610; 85730; 93308; 93321; 93926; 96365; 96366; 96375; 96376; 97110; 97116; 97162; 97166; 97530; 97535; 99152; 99153; 99285-25; A9270; C1725; C1760; C1769; C1887; C1894; C9764; J1170; J1644; J2250; J2405; J3010; J7030; J7050; Q9967; U0002

== ENCOUNTER 2023-12-02 18:32 | Emergency (ER) | payer MEDICARE ==
[~2023-12-02] VITALS: Ht 167.6 cm; Wt 65.3 kg
[~2023-12-02 18:32] MED LIST changes: +NICO21TP TOP; +SENN187 PO; +TAMS.4ER PO
[2023-12-02 18:40] VITALS: BP 112/92
== END 2023-12-02 20:39 | disposition home or self-care (01) ==
LOC: ER 18:32
DX: I70.211 Atherosclerosis of native arteries of extremities with intermittent claudication, right leg (principal); F17.210 Nicotine dependence, cigarettes, uncomplicated; I25.2 Old myocardial infarction; Z79.899 Other long term (current) drug therapy
CPT/HCPCS: 99282

== ENCOUNTER 2023-12-12 10:04 | Emergency (ER) | payer MEDICARE ==
[~2023-12-12] VITALS: Ht 167.6 cm; Wt 64.9 kg
[2023-12-12 13:09] VITALS: BP 110/71
== END 2023-12-12 13:29 | disposition home or self-care (01) ==
LOC: ER 10:04
DX: M79.89 Other specified soft tissue disorders (principal); R20.0 Anesthesia of skin; Z86.718 Personal history of other venous thrombosis and embolism; F17.210 Nicotine dependence, cigarettes, uncomplicated; I11.0 Hypertensive heart disease with heart failure; I50.9 Heart failure, unspecified; E78.5 Hyperlipidemia, unspecified; I73.9 Peripheral vascular disease, unspecified; I25.2 Old myocardial infarction; G40.909 Epilepsy, unspecified, not intractable, without status epilepticus; Z79.02 Long term (current) use of antithrombotics/antiplatelets; Z79.899 Other long term (current) drug therapy
CPT/HCPCS: 93971; 99284-25

== ENCOUNTER 2024-04-19 10:09 | Emergency (ER) | payer MEDICARE, OTHER ==
[~2024-04-19] VITALS: Ht 167.6 cm; Wt 63.5 kg
[~2024-04-19 10:09] MED LIST changes: -Lisinopril2.5 MG; +Lisinopril2.5 MG PO; +Nicoderm Cq1 EAC1 TOP; +PREG150 PO
[2024-04-19 11:21] LABS: BASOPHILS ABSOLUTE AUTO 0.07 K/mm3 (0.00-0.23); BASOPHILS PERCENT AUTO 1 % (0-2); EOSINOPHILS ABSOLUTE AUTO 0.16 K/mm3 (0.00-0.68); EOSINOPHILS PERCENT AUTO 2 % (0-6); Hematocrit 48.6 % (37.0-53.0); Hemoglobin 16.2 g/dL (13.5-17.5); IMMATURE GRAN ABSOLUTE AUTO 0.03 K/mm3 (0.00-0.10); IMMATURE GRAN PERCENT AUTO 0 % (0-1); LYMPHOCYTES ABSOLUTE AUTO 2.99 K/mm3 (0.84-5.20); LYMPHOCYTES PERCENT AUTO 34 % (21-46); MONOCYTES ABSOLUTE AUTO 0.71 K/mm3 (0.16-1.47); MONOCYTES PERCENT AUTO 8 % (4-13); Mean Corpuscular HGB 29.2 pg (26.0-34.0); Mean Corpuscular HGB Conc 33.3 g/dL (31.5-36.5); Mean Corpuscular Volume 88 fL (80-100); Mean Platelet Volume 12.1 fL (9.1-12.4); NEUTROPHILS ABSOLUTE AUTO 4.83 K/mm3 (1.96-9.15); NEUTROPHILS PERCENT AUTO 55 % (41-73); Platelet Count 137 K/mm3 (150-400); RDW Coefficient Variation 14.8 % (11.7-14.2); RDW Standard Deviation 47.9 fL (35.1-46.3); Red Blood Cell Count 5.55 M/mm3 (4.30-5.90); White Blood Cell Count 8.79 K/mm3 (4.00-11.30)
[2024-04-19 11:38] LABS: Albumin, Blood 3.8 g/dL (3.4-5.0); Bilirubin, Total 0.5 mg/dL (0.1-1.0); Bun/Creatinine Ratio 18.2 (12.0-20.0); Calcium, Blood 9.2 mg/dL (8.5-10.1); Creatinine, Blood 0.88 mg/dL (0.60-1.20); Globulin, Blood 3.7 g/dL (2.2-4.0); Potassium, Blood 4.2 mmol/L (3.5-5.5); Total Protein, Blood 7.5 g/dL (6.4-8.2)
[2024-04-19 15:00] VITALS: BP 127/80
== END 2024-04-19 16:01 | disposition home or self-care (01) ==
LOC: ER 10:09
PROVIDERS: Physician Assistant
DX: G45.9 Transient cerebral ischemic attack, unspecified (principal); I25.2 Old myocardial infarction; F17.200 Nicotine dependence, unspecified, uncomplicated; Z79.02 Long term (current) use of antithrombotics/antiplatelets; Z79.899 Other long term (current) drug therapy
CPT/HCPCS: 70450; 80053; 85025; 93005; 93010; 93880; 99284-25

== ENCOUNTER 2024-10-11 09:18 | Emergency (ER) | payer MEDICARE, OTHER ==
[~2024-10-11] VITALS: Ht 167.6 cm; Wt 68.0 kg
[2024-10-11] MEDS ORDERED: Ondansetron HCl 2 MG / ML 2ML Vial IV ONE (09:35)
[2024-10-11 10:33] LABS: BASOPHILS ABSOLUTE AUTO 0.04 K/mm3 (0.00-0.23); BASOPHILS PERCENT AUTO 0 % (0-2); EOSINOPHILS PERCENT AUTO 0 % (0-6); Hematocrit 46.7 % (37.0-53.0); Hemoglobin 15.9 g/dL (13.5-17.5); IMMATURE GRAN ABSOLUTE AUTO 0.04 K/mm3 (0.00-0.10); IMMATURE GRAN PERCENT AUTO 0 % (0-1); LYMPHOCYTES ABSOLUTE AUTO 1.32 K/mm3 (0.84-5.20); LYMPHOCYTES PERCENT AUTO 12 % (21-46); MONOCYTES ABSOLUTE AUTO 0.61 K/mm3 (0.16-1.47); MONOCYTES PERCENT AUTO 6 % (4-13); Mean Corpuscular HGB 29.2 pg (26.0-34.0); Mean Corpuscular Volume 86 fL (80-100); Mean Platelet Volume 10.8 fL (9.1-12.4); NEUTROPHILS ABSOLUTE AUTO 9.18 K/mm3 (1.96-9.15); NEUTROPHILS PERCENT AUTO 82 % (41-73); Platelet Count 181 K/mm3 (150-400); RDW Coefficient Variation 14.9 % (11.7-14.2); RDW Standard Deviation 46.6 fL (35.1-46.3); Red Blood Cell Count 5.44 M/mm3 (4.30-5.90); White Blood Cell Count 11.19 K/mm3 (4.00-11.30)
[2024-10-11 11:04] LABS: Albumin, Blood 3.4 g/dL (3.4-5.0); Albumin/Globulin Ratio 0.8 (0.8-1.8); Bun/Creatinine Ratio 9.9 (12.0-20.0); Calcium, Blood 9.5 mg/dL (8.5-10.1); Creatinine, Blood 1.01 mg/dL (0.60-1.20); Potassium, Blood 4.2 mmol/L (3.5-5.5); Total Protein, Blood 7.4 g/dL (6.4-8.2)
[2024-10-11] MEDS ORDERED: NS 1,000 ML IV SCH (11:25)
[2024-10-11] MEDS ORDERED: Metoclopramide HCl 5MG / ML 2ML Vial IV ONE (11:25)
[2024-10-11 11:45] LABS: Source, Urine Clean Catch
[2024-10-11 11:56] LABS: Bilirubin, Urine Neg (Neg); Glucose Qualitative, Urine Neg (Neg); Leukocyte Esterase, Urine Neg (Neg); Nitrite, Urine Neg (Neg); Urobilinogen, Urine NORM (Normal)
[2024-10-11 12:12] LABS: Blood, Urine 4+ (Neg); Ketones, Urine Neg (Neg); Protein, Urine 1+ (Neg)
[2024-10-11 12:14] LABS: Appearance, Urine Clear (Clear); Bacteria Not Seen /hpf; Color, Urine Yellow (P-Yellow); Squamous Epithelial Cells Few /hpf (Few); White Blood Cells, Urine Not Seen /hpf (0-5)
[2024-10-11] MEDS ORDERED: METO10 PO (13:04)
[2024-10-11 13:15] VITALS: BP 135/78
== END 2024-10-11 13:33 | disposition home or self-care (01) ==
LOC: ER 09:18
PROVIDERS: Emergency Medicine
DX: R10.31 Right lower quadrant pain (principal); R11.2 Nausea with vomiting, unspecified; F17.210 Nicotine dependence, cigarettes, uncomplicated; I25.2 Old myocardial infarction; Z79.02 Long term (current) use of antithrombotics/antiplatelets; Z79.899 Other long term (current) drug therapy
CPT/HCPCS: 74177; 80053; 81001; 83690; 84484; 85025; 96361; 96374-59; 96375; 99284-25; J2405; J2765; J7030; Q9967

== ENCOUNTER 2024-11-24 23:06 | Emergency (ER) | payer MEDICARE, OTHER ==
[~2024-11-24] VITALS: Ht 167.6 cm; Wt 75.8 kg
[~2024-11-24 23:06] MED LIST changes: +METO10 PO
[2024-11-24 23:36] LABS: BASOPHILS ABSOLUTE AUTO 0.05 K/mm3 (0.00-0.23); BASOPHILS PERCENT AUTO 1 % (0-2); EOSINOPHILS ABSOLUTE AUTO 0.11 K/mm3 (0.00-0.68); EOSINOPHILS PERCENT AUTO 2 % (0-6); Hematocrit 42.8 % (37.0-53.0); Hemoglobin 14.6 g/dL (13.5-17.5); IMMATURE GRAN ABSOLUTE AUTO 0.01 K/mm3 (0.00-0.10); IMMATURE GRAN PERCENT AUTO 0 % (0-1); LYMPHOCYTES ABSOLUTE AUTO 2.95 K/mm3 (0.84-5.20); LYMPHOCYTES PERCENT AUTO 40 % (21-46); MONOCYTES ABSOLUTE AUTO 0.59 K/mm3 (0.16-1.47); MONOCYTES PERCENT AUTO 8 % (4-13); Mean Corpuscular HGB 29.5 pg (26.0-34.0); Mean Corpuscular HGB Conc 34.1 g/dL (31.5-36.5); Mean Corpuscular Volume 87 fL (80-100); NEUTROPHILS ABSOLUTE AUTO 3.63 K/mm3 (1.96-9.15); NEUTROPHILS PERCENT AUTO 50 % (41-73); Platelet Count 163 K/mm3 (150-400); RDW Coefficient Variation 14.7 % (11.7-14.2); RDW Standard Deviation 46.7 fL (35.1-46.3); Red Blood Cell Count 4.95 M/mm3 (4.30-5.90); White Blood Cell Count 7.34 K/mm3 (4.00-11.30)
[2024-11-24 23:53] LABS: Albumin, Blood 3.4 g/dL (3.4-5.0); Albumin/Globulin Ratio 0.9 (0.8-1.8); Bilirubin, Total 0.5 mg/dL (0.1-1.0); Bun/Creatinine Ratio 11.5 (12.0-20.0); Calcium, Blood 9.1 mg/dL (8.5-10.1); Creatinine, Blood 1.04 mg/dL (0.60-1.20); Globulin, Blood 3.6 g/dL (2.2-4.0); Potassium, Blood 3.8 mmol/L (3.5-5.5)
[2024-11-25] MEDS ORDERED: Ondansetron HCl 2 MG / ML 2ML Vial IV ONE (00:15)
[2024-11-25] MEDS ORDERED: HYDROmorphone HCl/Pf 1MG SYR IV ONE (00:15)
[2024-11-25] MEDS ORDERED: Diazepam 5 MG / ML 2ML SYR IV ONE (01:15)
[2024-11-25 02:00] VITALS: BP 127/56
[2024-11-25] MEDS ORDERED: DOC250 PO (02:32)
[2024-11-25] MEDS ORDERED: ONDA4ODT MM (02:32)
[2024-11-25] MEDS ORDERED: OXYACE7.5T PO (02:32)
[2024-11-25] MEDS ORDERED: CEFP200 PO (02:32)
== END 2024-11-25 02:55 | disposition home or self-care (01) ==
LOC: ER 23:06
PROVIDERS: Physician Assistant
DX: R10.9 Unspecified abdominal pain (principal); I25.2 Old myocardial infarction; I11.0 Hypertensive heart disease with heart failure; I50.9 Heart failure, unspecified; E78.5 Hyperlipidemia, unspecified; F17.210 Nicotine dependence, cigarettes, uncomplicated; Z79.02 Long term (current) use of antithrombotics/antiplatelets; Z79.899 Other long term (current) drug therapy
CPT/HCPCS: 74177; 80053; 83605; 85025; 96374; 96375; 99284-25; J1171; J2405; J3360; Q9967

== ENCOUNTER 2024-12-05 00:54 | Emergency (ER) | payer MEDICARE, OTHER ==
[~2024-12-05] VITALS: Ht 172.7 cm; Wt 79.4 kg
[~2024-12-05 00:54] MED LIST changes: +CEFP200 PO; +DOC250 PO; +ONDA4ODT MM; +OXYACE7.5T PO
[2024-12-05 01:36] LABS: Albumin, Blood 3.4 g/dL (3.4-5.0); Bilirubin, Total 0.4 mg/dL (0.1-1.0); Bun/Creatinine Ratio 15.2 (12.0-20.0); Calcium, Blood 8.9 mg/dL (8.5-10.1); Creatinine, Blood 1.05 mg/dL (0.60-1.20); Globulin, Blood 3.5 g/dL (2.2-4.0); Potassium, Blood 4.3 mmol/L (3.5-5.5); Total Protein, Blood 6.9 g/dL (6.4-8.2)
[2024-12-05 01:39] LABS: BASOPHILS ABSOLUTE AUTO 0.06 K/mm3 (0.00-0.23); BASOPHILS PERCENT AUTO 1 % (0-2); EOSINOPHILS ABSOLUTE AUTO 0.12 K/mm3 (0.00-0.68); EOSINOPHILS PERCENT AUTO 2 % (0-6); Hematocrit 43.6 % (37.0-53.0); Hemoglobin 14.5 g/dL (13.5-17.5); IMMATURE GRAN ABSOLUTE AUTO 0.04 K/mm3 (0.00-0.10); IMMATURE GRAN PERCENT AUTO 1 % (0-1); LYMPHOCYTES ABSOLUTE AUTO 2.44 K/mm3 (0.84-5.20); LYMPHOCYTES PERCENT AUTO 30 % (21-46); MONOCYTES ABSOLUTE AUTO 0.73 K/mm3 (0.16-1.47); MONOCYTES PERCENT AUTO 9 % (4-13); Mean Corpuscular HGB 29.3 pg (26.0-34.0); Mean Corpuscular HGB Conc 33.3 g/dL (31.5-36.5); Mean Corpuscular Volume 88 fL (80-100); Mean Platelet Volume 11.9 fL (9.1-12.4); NEUTROPHILS ABSOLUTE AUTO 4.66 K/mm3 (1.96-9.15); NEUTROPHILS PERCENT AUTO 58 % (41-73); Platelet Count 145 K/mm3 (150-400); RDW Coefficient Variation 14.8 % (11.7-14.2); RDW Standard Deviation 47.7 fL (35.1-46.3); Red Blood Cell Count 4.95 M/mm3 (4.30-5.90); White Blood Cell Count 8.05 K/mm3 (4.00-11.30)
[2024-12-05 02:13] LABS: Source, Urine Clean Catch
[2024-12-05 02:15] LABS: Bilirubin, Urine Neg (Neg); Blood, Urine Neg (Neg); Glucose Qualitative, Urine Neg (Neg); Ketones, Urine Neg (Neg); Leukocyte Esterase, Urine 1+ (Neg); Nitrite, Urine Neg (Neg); Protein, Urine Neg (Neg); Urobilinogen, Urine NORM (Normal)
[2024-12-05] MEDS ORDERED: OxyCODONE HCL 5 MG TAB PO ONE (02:20)
[2024-12-05 02:28] LABS: Appearance, Urine Clear (Clear); Color, Urine Pale Yellow (P-Yellow)
[2024-12-05 02:29] LABS: Bacteria Not Seen /hpf; Red Blood Cells, Urine Not Seen /hpf (0-2); Squamous Epithelial Cells Not Seen /hpf (Few); White Blood Cells, Urine 0-2 /hpf (0-5)
[2024-12-05] MEDS ORDERED: Ketorolac Tromethamine 30mg Vial IV ONE (04:20)
[2024-12-05] MEDS ORDERED: Lidocaine 4% 1 Patch TOP ONE (04:20)
[2024-12-05] MEDS ORDERED: Percocet 5-3251 EACH PO (04:22)
[2024-12-05] MEDS ORDERED: LIDO700A20 TOP (04:23)
[2024-12-05 04:39] VITALS: BP 118/78
== END 2024-12-05 04:47 | disposition home or self-care (01) ==
LOC: ER 00:54
PROVIDERS: Emergency Medicine
DX: R10.9 Unspecified abdominal pain (principal); E78.5 Hyperlipidemia, unspecified; I11.0 Hypertensive heart disease with heart failure; I50.9 Heart failure, unspecified; I25.2 Old myocardial infarction; F17.210 Nicotine dependence, cigarettes, uncomplicated; Z79.02 Long term (current) use of antithrombotics/antiplatelets; Z79.899 Other long term (current) drug therapy
CPT/HCPCS: 76770; 80053; 81001; 83690; 85025; 96374; 99284-25; A9270; J1885

== ENCOUNTER 2025-01-22 06:13 | Emergency (ER) | payer MEDICARE, OTHER ==
[~2025-01-22] VITALS: Ht 167.6 cm; Wt 63.5 kg
[~2025-01-22 06:13] MED LIST changes: +LIDO700A20 TOP; +Percocet 5-3251 EACH PO
[2025-01-22 06:33] LABS: BASOPHILS ABSOLUTE AUTO 0.05 K/mm3 (0.00-0.23); BASOPHILS PERCENT AUTO 1 % (0-2); EOSINOPHILS ABSOLUTE AUTO 0.07 K/mm3 (0.00-0.68); EOSINOPHILS PERCENT AUTO 1 % (0-6); Hematocrit 45.2 % (37.0-53.0); Hemoglobin 15.7 g/dL (13.5-17.5); IMMATURE GRAN ABSOLUTE AUTO 0.04 K/mm3 (0.00-0.10); IMMATURE GRAN PERCENT AUTO 0 % (0-1); LYMPHOCYTES ABSOLUTE AUTO 1.87 K/mm3 (0.84-5.20); LYMPHOCYTES PERCENT AUTO 18 % (21-46); MONOCYTES ABSOLUTE AUTO 0.79 K/mm3 (0.16-1.47); MONOCYTES PERCENT AUTO 8 % (4-13); Mean Corpuscular HGB 28.8 pg (26.0-34.0); Mean Corpuscular HGB Conc 34.7 g/dL (31.5-36.5); Mean Corpuscular Volume 83 fL (80-100); Mean Platelet Volume 11.5 fL (9.1-12.4); NEUTROPHILS ABSOLUTE AUTO 7.78 K/mm3 (1.96-9.15); NEUTROPHILS PERCENT AUTO 73 % (41-73); Platelet Count 150 K/mm3 (150-400); RDW Coefficient Variation 14.7 % (11.7-14.2); RDW Standard Deviation 43.9 fL (35.1-46.3); Red Blood Cell Count 5.45 M/mm3 (4.30-5.90)
[2025-01-22] MEDS ORDERED: Metoclopramide HCl 5MG / ML 2ML Vial IV ONE (07:05)
[2025-01-22] MEDS ORDERED: Morphine Sulfate 4 MG/1 ML Injection IV ONE (07:05)
[2025-01-22] MEDS ORDERED: DiphenhydrAMINE HCl 50 MG/ML 1ML Vial IV ONE (07:05)
[2025-01-22 07:09] LABS: Albumin, Blood 3.7 g/dL (3.4-5.0); Albumin/Globulin Ratio 1.1 (0.8-1.8); Bilirubin, Total 1.3 mg/dL (0.1-1.0); Bun/Creatinine Ratio 18.4 (12.0-20.0); Calcium, Blood 9.2 mg/dL (8.5-10.1); Creatinine, Blood 0.92 mg/dL (0.60-1.20); Globulin, Blood 3.5 g/dL (2.2-4.0); Potassium, Blood 3.5 mmol/L (3.5-5.5); Total Protein, Blood 7.2 g/dL (6.4-8.2)
[2025-01-22 13:30] VITALS: BP 143/65
[2025-01-22] MEDS ORDERED: METO10 PO (13:43)
== END 2025-01-22 13:51 | disposition home or self-care (01) ==
LOC: ER 06:13
PROVIDERS: Emergency Medicine
DX: K82.8 Other specified diseases of gallbladder (principal); R11.2 Nausea with vomiting, unspecified; Z79.899 Other long term (current) drug therapy; Z79.2 Long term (current) use of antibiotics; I11.0 Hypertensive heart disease with heart failure; E78.5 Hyperlipidemia, unspecified; F17.210 Nicotine dependence, cigarettes, uncomplicated
CPT/HCPCS: 74177; 76705; 80053; 83605; 83690; 85025; 96374-59; 96375; 99284-25; J1200; J2270; J2765; Q9967